=== PATIENT | male | born 1970 | race African-American/Black ===

== ENCOUNTER 2019-01-06 07:14 | Emergency (ER) | payer OTHER ==
[2019-01-06 08:13] VITALS: BP 123/82
[2019-01-06] MEDS ORDERED: Naproxen TAB* 250 MG PO ONE (08:34)
--- NOTE | 2019-01-06 08:40 | UC ---
Neck Pain HPI - HPI Summary HPI Summary: 48 yo male with the onset of neck and thoracic back pain after lifting heavy equipment at work Initially pain was mild but rapidly worsened over the coarse of the evening Did not sleep much pain radiates to right shoulder - History of Current Complaint Chief Complaint: UCBackPain Stated Complaint: BACK NECK AND SHOULDER PAIN Time Seen by Provider: 01/06/19 08:28 Hx Obtained From: Patient Onset/Duration Of Injury/Symptoms: Hours Timing: Constant Severity: Severe Pain Intensity: 8 Pain Scale Used: 0-10 Numeric Location: Diffuse Character: Aching, Spasmotic Aggravating Factors: Position Alleviating Factors: Nothing Associated Signs & Symptoms: Positive: Negative Related History: Occupational Injury Head: 1 - pain 2 - pain 3 - midline thoracic pain - Allergies/Home Medications Allergies/Adverse Reactions: Allergies Allergy/AdvReac Type Severity Reaction Status Date / Time No Known Allergies Allergy Verified 01/06/19 08:13 Home Medications: Home Medications Topical Pain Med 1 applic TOPICAL ONCE PRN 01/06/19 [History] PMH/Surg Hx/FS Hx/Imm Hx Previously Healthy: Yes - Surgical History Surgical History: None - Family History Known Family History: Positive: Non-Contributory - Social History Alcohol Use: Rare Substance Use Type: None Smoking Status (MU): Never Smoked Tobacco Review of Systems All Other Systems Reviewed And Are Negative: Yes Constitutional: Positive: Negative Skin: Positive: Negative Eyes: Positive: Negative ENT: Positive: Negative Respiratory: Positive: Negative Cardiovascular: Positive: Negative Gastrointestinal: Positive: Negative Genitourinary: Positive: Negative Motor: Positive: Negative Neurovascular: Positive: Negative Musculoskeletal: Positive: Arthralgia - neck/t-spine Neurological: Positive: Negative Psychological: Positive: Negative Physical Exam Vital Signs: Initial Vital Signs Temp 98.9 F 01/06/19 08:03 Pulse 82 01/06/19 08:03 Resp 22 01/06/19 08:03 BP 123/82 01/06/19 08:03 Pulse Ox 100 01/06/19 08:03 Diagnostics - Radiology No standard instances Radiology Interpretation Completed By: Radiologist Summary of Radiographic Findings: DDD/DJD/loss of lordosis Neck Pain Course/Dx - Differential Dx/Diagnosis Provider Diagnosis: Cervical strain, Degenerative disc disease Discharge ED - Sign-Out/Discharge Documenting (check all that apply): Patient Departure All imaging exams completed and their final reports reviewed: Yes - Discharge Plan Condition: Stable Disposition: HOME Prescriptions: Cyclobenzaprine (NF) [Cyclobenzaprine 5 MG (NF)] 5 mg PO TID PRN #21 tab PRN Reason: Spasms - Back Naproxen [Naproxen 500 mg tab] 500 mg PO BID PRN #30 tablet PRN Reason: Pain Patient Education Materials: Cervical Strain (ED), Degenerative Disc Disease ( ED) Forms: *Work Release Referrals: Mark Marie MD [Medical Doctor] - 1 Week - Billing Disposition and Condition Condition: STABLE Disposition: Home
== END 2019-01-06 09:34 | disposition home or self-care (01) ==
LOC: UCCORT 07:14
DX: S16.1XXA Strain of muscle, fascia and tendon at neck level, initial encounter (principal); M53.80 Other specified dorsopathies, site unspecified; M54.6 Pain in thoracic spine; Y93.89 Activity, other specified; X58.XXXA Exposure to other specified factors, initial encounter; Y92.9 Unspecified place or not applicable
CPT/HCPCS: 72050; 72070; 99202; A9270-GY; G0463